=== PATIENT | male | born 1980 ===

== ENCOUNTER 2017-02-26 00:33 | Observation (INO) | payer SELFPAY ==
[2017-02-26 00:45] VITALS: O2SAT 97
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
[2017-02-26 05:00] VITALS: BP 95/57; PULSE 104; RESP 18; TEMP 98
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
== END 2017-02-26 05:43 | disposition home or self-care (01) ==
LOC: C.ER 00:33 → C.9OBSV 01:39
PROVIDERS: ADMIT Student in an Organized Health Care Education/Training Program; ATTEND Student in an Organized Health Care Education/Training Program
DX: F10.10 Alcohol abuse, uncomplicated (principal); Y09 Assault by unspecified means; Y90.9 Presence of alcohol in blood, level not specified
CPT/HCPCS: 70450; 82948; 99283; G0378